=== PATIENT | male | born 1960 | race Caucasian/White ===

== ENCOUNTER 2020-06-17 07:47 | Emergency (ER) | payer OTHER ==
[~2020-06-17] VITALS: Ht 170.2 cm; Wt 88.0 kg
[~2020-06-17 07:47] MED LIST: ATIVAN0.5 MG PO; ATIVAN1 MG; BENADRYL25 MG PO; CARVEDILOL12.5 MG PO; CONDYLOX; DARVOCET-N 1001 EAC1 PO; FLEXERIL; FLEXERIL PO; HYDROCODON-ACE1 EAC7 PO; LIDOPATCH1 EACH; LISINOPRIL20 MG PO; PEPCID40 MG PO; PREDNISONE50 MG PO; VENTOLIN17 GM INH
[2020-06-17] MEDS ORDERED: LIPITOR 20 MG T20 M1 PO (08:06)
[2020-06-17] MEDS ORDERED: CIALIS10 MG PO (08:06)
[2020-06-17] MEDS ORDERED: FENOFIBRATE160 MG PO (08:06)
[2020-06-17 09:35] VITALS: BP 120/78
== END 2020-06-17 09:35 | disposition home or self-care (01) ==
LOC: M.ERS 07:47
DX: T44.7X1A Poisoning by beta-adrenoreceptor antagonists, accidental (unintentional), initial encounter (principal); I10 Essential (primary) hypertension; M19.90 Unspecified osteoarthritis, unspecified site; Z79.899 Other long term (current) drug therapy; Z91.012 Allergy to eggs; Z88.6 Allergy status to analgesic agent; Y92.89 Other specified places as the place of occurrence of the external cause